=== PATIENT | male | born 1970 | race Hispanic/Latino ===

== ENCOUNTER 2018-09-03 16:09 | Observation (INO) | payer SELFPAY ==
[2018-09-03 17:13] LABS: #Basophils 0.1 thou/uL (0.0-0.2); #Eosinphils 0.4 thou/uL (0.0-0.7); #Lymphocytes 2.7 thou/uL (1.20-3.40); #Monocytes 0.8 thou/uL (0.11-0.59); #Neutrophils 7.3 thou/uL (1.40-6.50); %Basophils 1.2 % (0.0-1.0); %Eosinophils 3.5 % (0.0-10.0); %Lymphocytes 23.6 % (21.0-51.0); %Monocytes 7.3 % (0.0-10.0); %Neutrophils 64.4 % (42.0-75.0); Hemoglobin 15.7 g/dL (14.0-18.0); Mean Corpuscular HGB CONC 34.4 g/dL (32.0-36.0); Mean Corpuscular Hemoglobin 31.8 pg (27.0-31.0); Mean Corpuscular Volume 92.5 fL (78.0-98.0); Platelet Count 280 thou/uL (130-400); RBC Distribution Width 12.4 % (11.5-14.5); Red Blood Cell (RBC) Count 4.93 mill/uL (4.70-6.10); White Blood Cell (WBC) Count 11.4 thou/uL (4.8-10.8)
[2018-09-03 17:36] LABS: ALT (SGPT) 32 U/L (8-55); AST (SGOT) 18 U/L (5-34); Albumin 4.2 g/dL (3.5-5.0); Alkaline Phosphatase 76 U/L (40-150); Anion Gap 15 mmol/L (10-20); BUN (Urea Nitrogen) 15 mg/dL (8.9-20.6); Bilirubin, Total 0.2 mg/dL (0.2-1.2); Calc. Creatinine Clearance 0 mL/min (70-130); Calcium 9.6 mg/dL (7.8-10.44); Carbon Dioxide 24 mmol/L (22-29); Chloride 109 mmol/L (98-107); Estimated GFR-MDRD Greater than 90; Glucose 107 mg/dL (70-105); Protein, Total 7.2 g/dL (6.0-8.3); Sodium 144 mmol/L (136-145)
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
[2018-09-03 19:38] VITALS: BMI 46.7
[2018-09-03] MEDS ORDERED: Ondansetron PF 4 MG/2 ML Vial IVP PRN (19:59)
[2018-09-03] MEDS ORDERED: Acetaminophen 325 MG TAB PO PRN (19:59)
[2018-09-03] MEDS ORDERED: Acetaminophen 650 MG Suppository PR PRN (19:59)
[2018-09-03] MEDS ORDERED: Ondansetron ODT 4 MG TAB PO PRN (19:59)
[2018-09-03] MEDS: Sodium Chloride 0.9% 1,000 ML IV SCH (20:03)
[2018-09-03 20:17] LABS: Hemoglobin A1c 5.9 % (4.0-6.0)
[2018-09-03] MEDS: Clindamycin/D5W 600 MG in Premix Bag 1 BAG IVPB SCH (22:03)
--- NOTE | 2018-09-03 23:45 | ULT ---
BILATERAL LOWER EXTREMITY VENOUS DUPLEX EXAM: INDICATIONS: Bilateral lower extremity pain and edema. FINDINGS: The veins of both lower extremities are evaluated with color Doppler, spectral analysis, and compress ion. The deep veins of bilateral lower extremities show normal blood flow and compression. No evidence of DVT identified. IMPRESSION: Negative bilateral lower extremity venous duplex examination. POS: RODRIGO
[2018-09-04] MEDS: Vancomycin HCl 1 GM in Premix Bag 1 BAG IVPB SCH ×2 (01:11→09:09)
[2018-09-04] MEDS ORDERED: Vancomycin HCl 1 GM in Premix Bag 1 BAG IVPB SCH (05:00)
[2018-09-04 05:23] LABS: #Basophils 0.1 thou/uL (0.0-0.2); #Eosinphils 0.4 thou/uL (0.0-0.7); #Lymphocytes 2.4 thou/uL (1.20-3.40); #Monocytes 0.6 thou/uL (0.11-0.59); #Neutrophils 4.8 thou/uL (1.40-6.50); %Lymphocytes 29.1 % (21.0-51.0); %Monocytes 7.6 % (0.0-10.0); %Neutrophils 57.3 % (42.0-75.0); Hemoglobin 14.1 g/dL (14.0-18.0); Mean Corpuscular HGB CONC 32.4 g/dL (32.0-36.0); Mean Corpuscular Hemoglobin 30.4 pg (27.0-31.0); Mean Corpuscular Volume 93.9 fL (78.0-98.0); Mean Platelet Volume 7.7 fL (7.4-10.4); Platelet Count 249 thou/uL (130-400); RBC Distribution Width 12.3 % (11.5-14.5); Red Blood Cell (RBC) Count 4.63 mill/uL (4.70-6.10); White Blood Cell (WBC) Count 8.3 thou/uL (4.8-10.8)
[2018-09-04 05:36] LABS: Anion Gap 10 mmol/L (10-20); BUN (Urea Nitrogen) 17 mg/dL (8.9-20.6); Calc. Creatinine Clearance 226 mL/min (70-130); Calcium 8.7 mg/dL (7.8-10.44); Carbon Dioxide 26 mmol/L (22-29); Cardiac Risk 5.5 (Less than 4.5); Chloride 108 mmol/L (98-107); Cholesterol 198 mg/dl (< 200 Desired); Estimated GFR-MDRD Greater than 90; Glucose 104 mg/dL (70-105); HDL Cholesterol 36 mg/dL (>60 Neg Risk); LDL Cholesterol, Calculated 131 mg/dL; Potassium 3.9 mmol/L (3.5-5.1); Sodium 140 mmol/L (136-145); Triglycerides 153 mg/dL (Less than 150)
[2018-09-04] MEDS: Sodium Chloride 0.9% 1,000 ML IV SCH (05:37)
[2018-09-04] MEDS: Clindamycin/D5W 600 MG in Premix Bag 1 BAG IVPB SCH (05:38)
--- NOTE | 2018-09-04 07:03 | PDOC.FM ---
- Subjective Subjective: Patient states that his leg is itching this morning, states he was very anxious yesterday. Discussed his pre-diabetic A1C. Patient states he has no insurance. Discussed establishing at [facility]. Patient states otherwise his leg is about the same. - Objective Vital Signs & Weight: Vital Signs (12 hours) Temp Pulse Resp BP Pulse Ox 09/04/18 04:00 97.7 F 76 20 128/83 95 09/04/18 00:15 93 L 09/04/18 00:00 98.0 F 68 20 122/83 94 L 09/03/18 20:00 98.2 F 63 20 134/84 95 09/03/18 19:30 95 Weight Weight 139.525 kg I&O: 09/03/18 09/04/18 09/05/18 06:59 06:59 06:59 Intake Total 2119 Balance 2119 Result Diagrams: 09/04/18 05:00 09/04/18 05:00 Phys Exam - Physical Examination Constitutional: NAD Neck: no nodes, supple Respiratory: no wheezing, clear to auscultation bilateral Cardiovascular: RRR, no significant murmur Gastrointestinal: soft, non-tender, positive bowel sounds Musculoskeletal: pulses present mild edema LLE Neurological: non-focal, moves all 4 limbs Psychiatric: normal affect Skin: cap refill <2 seconds Deviation from normal: LLE erythema, warmth, slight erythema outside of margin on LLE -: mild swelling LLE Dx/Plan (1) Cellulitis Code(s): L03.90 - CELLULITIS, UNSPECIFIED Status: Acute (2) Tobacco abuse Code(s): Z72.0 - TOBACCO USE Status: Acute (3) Marijuana abuse Code(s): F12.10 - CANNABIS ABUSE, UNCOMPLICATED Status: Acute - Plan Plan: This is a 47 yo male with no known PMH Cellulitis vs venous stasis s/p injury -Stop IV vancomycin, transition to oral clindamycin -US for DVT negative Elevated BP with no diagnosis of HTN -Will continue to monitor in hospital -Encourage pt to follow up with a PCP -BP much improved this AM, Obesity -ASCVD risk of 4.4%, <10% Pre-Diabetes -A1C 5.9 -Discussed diet and encouraged exercise and weight loss -Family history of diabetes -Needs follow up with PCP Tobacco and Marijuana Abuse -encourage cessation Code: Full Prophylaxis: Lovenox Family: None at bedside Fluids: SL Diet: HH Disposition: Home in 1-2 days PCP: none Addendum - Attending - Attending Attestation Date/Time: 09/04/18 1222 I personally evaluated the patient and discussed the management with Dr. Murray I agree with the History, Examination, Assessment and Plan documented above with any addition or exceptions noted below.Patient with improvement with IV antibiotic he will be dismissed with compression garment to RLE and po cleocin with close outpatient follow up.
[2018-09-04] MEDS ORDERED: diphenhydrAMINE 50 MG CAP PO PRN (09:00)
[2018-09-04] MEDS ORDERED: Clindamycin 150 MG CAP PO SCH (09:00)
[2018-09-04] MEDS ORDERED: Enoxaparin Sodium 40 MG/0.4 ML SYRINGE SC SCH (09:00)
[2018-09-04 11:27] VITALS: TEMP 98.6
[2018-09-04 14:41] VITALS: BP 155/92
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
== END 2018-09-04 14:43 | disposition home or self-care (01) ==
LOC: ERS 16:09 → T4-A 18:49 → INTOOBSV 18:49
PROVIDERS: ADMIT Student in an Organized Health Care Education/Training Program; ATTEND Student in an Organized Health Care Education/Training Program
DX: L03.116 Cellulitis of left lower limb (principal); R73.03 Prediabetes; F17.210 Nicotine dependence, cigarettes, uncomplicated; F12.10 Cannabis abuse, uncomplicated; R03.0 Elevated blood-pressure reading, without diagnosis of hypertension; E66.9 Obesity, unspecified; Z68.42 Body mass index [BMI] 45.0-49.9, adult; Z88.2 Allergy status to sulfonamides; Z98.890 Other specified postprocedural states
CPT/HCPCS: 36415; 80048; 80053; 80061; 83036; 83605; 85025; 87040; 93970; 96361; 96365; 96366; 96367; 96376; G0378; J1650; J3370; J3490; Q0163

== ENCOUNTER 2018-09-14 14:21 | Emergency (ER) | payer SELFPAY ==
[2018-09-14] MEDS ORDERED: Famotidine 20 MG TAB ONE ×2 (14:54→14:57)
[2018-09-14] MEDS ORDERED: diphenhydrAMINE 50 MG CAP ONE (14:54)
[2018-09-14] MEDS ORDERED: Dexamethasone 10 MG/ML VIAL ONE (14:54)
[2018-09-14] MEDS ORDERED: Famotidine/PF 20 mg/2ml Vial ONE (14:57)
== END 2018-09-14 15:21 | disposition home or self-care (01) ==
LOC: ERS 14:21
DX: T78.40XA Allergy, unspecified, initial encounter (principal); F17.210 Nicotine dependence, cigarettes, uncomplicated
CPT/HCPCS: 99282; J1100; Q0163; S0028

== ENCOUNTER 2023-01-26 11:41 | Emergency (ER) | payer SELFPAY ==
[2023-01-26 12:37] LABS: #Basophils 0.1 thou/uL (0.0-0.2); #Eosinphils 0.2 thou/uL (0.0-0.7); #Monocytes 0.7 thou/uL (0.11-0.59); #Neutrophils 9.9 thou/uL (1.40-6.50); %Basophils 0.5 % (0.0-1.0); %Eosinophils 1.3 % (0.0-10.0); %Monocytes 5.2 % (0.0-10.0); %Neutrophils 77.6 % (42.0-75.0); Hematocrit 49.5 % (42.0-52.0); Hemoglobin 16.8 g/dL (14.0-18.0); Mean Corpuscular HGB CONC 33.9 g/dL (32.0-36.0); Mean Corpuscular Volume 91.3 fl (78.0-98.0); Platelet Count 317 10x3/uL (130-400); RBC Distribution Width 12.5 % (11.5-14.5); Red Blood Cell (RBC) Count 5.42 mill/uL (4.70-6.10); White Blood Cell (WBC) Count 12.8 10x3/uL (4.8-10.8)
[2023-01-26 13:01] LABS: ALT (SGPT) 17 U/L (8-55); AST (SGOT) 15 U/L (5-34); Albumin 4.6 g/dL (3.5-5.0); Alkaline Phosphatase 93 U/L (40-110); Anion Gap 16 mmol/L (10-20); BUN (Urea Nitrogen) 24 mg/dL (8.4-25.7); Calc. Creatinine Clearance 0 mL/min (70-130); Calcium 10.4 mg/dL (7.8-10.44); Carbon Dioxide 25 mmol/L (22-29); Chloride 101 mmol/L (98-107); Estimated GFR 55; Globulin 3.6 g/dL (2.4-3.5); Glucose 109 mg/dL (70-105); Lipase 117 U/L (8-78); Potassium 4.5 mmol/L (3.5-5.1); Protein, Total 8.2 g/dL (6.0-8.3); Sodium 137 mmol/L (136-145)
[2023-01-26 13:08] LABS: Bilirubin, Total 0.3 mg/dL (0.2-1.2)
[2023-01-26] MEDS ORDERED: Ketorolac Tromethamine 30 MG/ML VIAL ONE (13:46)
[2023-01-26] MEDS ORDERED: Ondansetron PF 4 MG/2 ML Vial ONE (17:56)
[2023-01-26] MEDS ORDERED: Morphine 4 MG/ML VIAL ONE (17:56)
[2023-01-26 21:26] LABS: Bacteria/HPF 3+ HPF (None Seen); Bilirubin Negative (Negative); Blood, Urine 2+ (Negative); CAUTI Indications for Culture Acute Hematuria; Clarity Clear (Clear); Glucose, Urine (Dipstick) Normal (Negative); Ketone, Urine Negative (Negative); Leukocyte 75 Leu/uL (Negative); Mucous/LPF Rare LPF (<2+); Nitrite Negative (Negative); Protein, Urine (Dipstick) 70 mg/dL (Neg-Trace); RBC/HPF 21-50 HPF (0-3); Specific Gravity, Urine 1.015 (1.002-1.036); Squamous Epithelial 0-3 HPF (0-3); Urobilinogen Normal mg/dL (Less than 2); pH, Urine 5.5 (5.0-9.0)
[2023-01-26 21:30] LABS: Urine Culture Reflex Yes Yes
== END 2023-01-26 21:50 | disposition home or self-care (01) ==
LOC: ERS 11:41
DX: N39.0 Urinary tract infection, site not specified (principal); R33.9 Retention of urine, unspecified; F17.210 Nicotine dependence, cigarettes, uncomplicated
CPT/HCPCS: 36415; 51702; 74176; 80053; 81001; 83690; 85025; 87086; 96361; 96372; 96374; 96375; J1885; J2270; J2405

== ENCOUNTER 2023-12-27 09:15 | Emergency (ER) | payer SELFPAY ==
[2023-12-27] MEDS ORDERED: Ketorolac Tromethamine 30 MG (1 mL) VIAL ONE (12:18)
[2023-12-27] MEDS ORDERED: Dexamethasone 10 MG/ML VIAL ONE (12:18)
== END 2023-12-27 12:40 | disposition home or self-care (01) ==
LOC: ERS 09:15
DX: S40.861A Insect bite (nonvenomous) of right upper arm, initial encounter (principal); S40.862A Insect bite (nonvenomous) of left upper arm, initial encounter; S80.861A Insect bite (nonvenomous), right lower leg, initial encounter; S80.862A Insect bite (nonvenomous), left lower leg, initial encounter; L03.90 Cellulitis, unspecified; F17.210 Nicotine dependence, cigarettes, uncomplicated; W57.XXXA Bitten or stung by nonvenomous insect and other nonvenomous arthropods, initial encounter
CPT/HCPCS: 96372; 99282; J1100; J1885